=== PATIENT | male | born 1940 | race Caucasian/White ===

== ENCOUNTER 2018-06-12 16:56 | Emergency (ER) | payer MEDICARE, MEDICAID ==
[~2018-06-12] VITALS: Ht 154.9 cm; Wt 63.5 kg
[~2018-06-12 16:56] MED LIST: ALPR0.25 PO; AMIO100T4 PO; ASPI-1159 PO; CAPT12.53 PO; CLOP75TA16 PO; COR12 PO; ERLO150T PO; FURO-151 PO; LEVO112T7 PO; METO-539 PO; PRAV40TA58 PO; PRED5DRO7 EACHEYE; SACU1TAB PO; SIMV40TA5 PO
[2018-06-12 19:56] LABS: BASOPHILS % 0.9 % (0.0-2.0); EOSINOPHILS % 4.6 % (0.0-5.0); HEMATOCRIT. 38.3 % (42.0-52.0); HEMOGLOBIN. 13.3 g/dL (14.0-18.0); LYMPHOCYTES % 20.8 % (20.0-50.0); MEAN CORPUSCULAR HEMOGLOBIN 32.2 pg (28.0-32.0); MEAN CORPUSCULAR VOLUME 92.5 fL (80.0-94.0); MEAN PLATELET VOLUME 8.9 fl (7.4-10.4); MONOCYTES % 14.1 % (2.0-8.0); NEUTROPHILS % 59.6 % (40.0-76.0); PLATELET 203 x1000/uL (130-400); RED BLOOD CELL COUNT 4.14 mill/uL (4.7-6.1); RED CELL DISTRIBUTION WIDTH 14.4 % (11.6-14.6)
[2018-06-12 20:04] LABS: PARTIAL THROMBOPLASTIN TIME 27.8 sec (23.4-31.0); PROTHROMBIN TIME 9.9 sec (9.1-11.1)
[2018-06-12 20:06] LABS: CHLORIDE 103 mEq/L (98-107)
[2018-06-12] MEDS ORDERED: MECLIZINE 25MG TABLET PO ONE (20:15)
[2018-06-12] MEDS ORDERED: LORAZEPAM 2MG/ML CPJ IV ONE (20:15)
[2018-06-12 22:02] LABS: CLARITY URINE CLEAR (CLEAR); COLOR URINE YELLOW (YELLOW); KETONES URINE NEGATIVE (NEGATIVE); LEUKOCYTE ESTERASE URINE NEGATIVE (NEGATIVE); NITRITE URINE NEGATIVE (NEGATIVE); OCCULT BLOOD URINE NEGATIVE (NEGATIVE); PROTEIN URINE NEGATIVE (NEGATIVE); SPECIFIC GRAVITY URINE 1.011 (1.005-1.030); UROBILINOGEN URINE 0.2 E.U./dL (0.2-1.0)
[2018-06-13 00:10] VITALS: BP 132/62
== END 2018-06-13 00:37 | disposition home or self-care (01) ==
LOC: ER 16:56 → EDBEDREQ 18:34 → ER 06-13 00:37 → CANBEDREQ 06-13 04:41
DX: H81.10 Benign paroxysmal vertigo, unspecified ear (principal); J18.9 Pneumonia, unspecified organism; I44.7 Left bundle-branch block, unspecified; Z98.890 Other specified postprocedural states; Z85.118 Personal history of other malignant neoplasm of bronchus and lung; Z92.21 Personal history of antineoplastic chemotherapy
CPT/HCPCS: 36415; 70450; 71045; 80053; 81003; 83690; 83735; 83880; 84484; 85025; 85610; 85730; 93005; 96374; 99285; J2060; J8597

== ENCOUNTER 2018-09-09 14:53 | Inpatient (IN) | payer MEDICARE, MEDICAID ==
[~2018-09-09] VITALS: Ht 154.9 cm; Wt 61.5 kg
[2018-09-09 18:00] LABS: HEMATOCRIT. 35.3 % (42.0-52.0); HEMOGLOBIN. 11.7 g/dL (14.0-18.0); MEAN CORPUSCULAR VOLUME 90.2 fL (80.0-94.0); MEAN PLATELET VOLUME 8.4 fl (7.4-10.4); PLATELET 409 x1000/uL (130-400); RED BLOOD CELL COUNT 3.91 mill/uL (4.7-6.1); RED CELL DISTRIBUTION WIDTH 15.3 % (11.6-14.6)
[2018-09-09 18:02] LABS: CHLORIDE 103 mEq/L (98-107)
[2018-09-09] MEDS ORDERED: CEFTRIAXONE 1 G PREMIX 50 ML IV ONE (19:00)
[2018-09-09] MEDS ORDERED: AZITHROMYCIN 500 MG in DEXT 5% WATER 250 ML IV SCH (19:00)
[2018-09-09 19:59] LABS: PLATELET ESTIMATE SLIGHTLY INCREASED
[2018-09-10] VITALS (12 sets, daily range): BP systolic 63–125; BP diastolic 24–61
[2018-09-10] MEDS ORDERED: ACETAMINOPHEN 325MG TABLET PO PRN (05:30)
[2018-09-10 08:36] LABS: BG BASE EXCESS 2.8 mmol/L (-2.0-2.0); BG CARBOXYHEMOGLOBIN 0.3 % (0.5-1.5); BG DEOXYHEMOGLOBIN 2.4 % (0.0-5.0); BG FRACTION INSPIRED OXYGEN 32; BG HCO3 ACT 27.8 mmol/L (22.0-26.0); BG METHEMOGLOBIN 0.3 % (0.0-1.5); BG OXYGEN SATURATION 97.6 % (92.0-98.5); BG PCO2 44.3 mmHg (35.0-45.0); BG PH 7.415 (7.350-7.450); BG PO2 103.5 mmHg (75.0-100.0); BG SAMPLE SITE RIGHT BRACHIAL; BG TOTAL HEMOGLOBIN 11.2 g/dL (12.0-18.0); BG VENT MODE NASAL CANNULA
[2018-09-10 08:50] LABS: CLARITY URINE CLEAR (CLEAR); COLOR URINE YELLOW (YELLOW); KETONES URINE NEGATIVE (NEGATIVE); LEUKOCYTE ESTERASE URINE NEGATIVE (NEGATIVE); NITRITE URINE NEGATIVE (NEGATIVE); OCCULT BLOOD URINE NEGATIVE (NEGATIVE); PROTEIN URINE NEGATIVE (NEGATIVE); SPECIFIC GRAVITY URINE 1.011 (1.005-1.030)
[2018-09-10] MEDS: IPRATROPIUM/ALBUTEROL 0.5-3(2.5)MG/3ML NEB HHN SCH ×4 (08:53→21:20)
[2018-09-10] MEDS ORDERED: ENOXAPARIN 40MG/0.4ML SYR SUBCUT SCH (09:00)
[2018-09-10] MEDS ORDERED: POTASSIUM CHLORIDE 10MEQ TABLET SR PO SCH (09:00)
[2018-09-10] MEDS: ENOXAPARIN 30MG/0.3ML SYR SUBCUT SCH (09:09)
[2018-09-10] MEDS: POTASSIUM CHLORIDE 10MEQ TABLET SR PO SCH (09:09)
[2018-09-10] MEDS: FUROSEMIDE 40MG/4ML VIAL IVP SCH (09:09)
[2018-09-10 09:33] LABS: BASOPHILS % 1.1 % (0.0-2.0); EOSINOPHILS % 9.1 % (0.0-5.0); HEMOGLOBIN. 11.2 g/dL (14.0-18.0); LYMPHOCYTES % 19.3 % (20.0-50.0); MEAN CORPUSCULAR HEMOGLOBIN 29.6 pg (28.0-32.0); MEAN CORPUSCULAR VOLUME 89.4 fL (80.0-94.0); MEAN PLATELET VOLUME 8.2 fl (7.4-10.4); MONOCYTES % 13.4 % (2.0-8.0); NEUTROPHILS % 57.1 % (40.0-76.0); PLATELET 383 x1000/uL (130-400); RED CELL DISTRIBUTION WIDTH 14.9 % (11.6-14.6)
[2018-09-10 09:43] LABS: CHLORIDE 104 mEq/L (98-107)
[2018-09-10] MEDS ORDERED: DEXTROSE 50% WATER 50ML SYRINGE IV PRN ×2 (10:45)
[2018-09-10] MEDS ORDERED: ASPIRIN 81MG EC TABLET PO NR (10:45)
[2018-09-10] MEDS ORDERED: CLOPIDOGREL 75MG TABLET PO NR (10:45)
[2018-09-10] MEDS ORDERED: CEFTRIAXONE 1,000 MG in DEXTROSE 5% WATER 50 ML IV SCH (10:45)
[2018-09-10] MEDS: INSULIN LISPRO 100 UNITS/ML SUBCUT SCH ×3 (12:16→21:00)
[2018-09-10] MEDS: BLOOD SUGAR DIAGNOSTIC STRIP TEST SCH ×3 (12:16→21:24)
[2018-09-10] MEDS: CEFTRIAXONE 1 G PREMIX 50 ML IV SCH (12:32)
[2018-09-10] MEDS: CAPTOPRIL 12.5MG TABLET PO SCH ×2 (12:32→21:00)
[2018-09-10] MEDS: CARVEDILOL 12.5MG TABLET PO SCH ×2 (12:32→21:00)
[2018-09-10] MEDS ORDERED: SODIUM CHLORIDE 0.9% 1000ML BAG (SEPSIS BOLUS) IV ONE (17:30)
[2018-09-10] MEDS ORDERED: SODIUM CHLORIDE 0.9% 200 ML IV NR (17:30)
[2018-09-11] VITALS (12 sets, daily range): BP systolic 95–148; BP diastolic 37–91
[2018-09-11] MEDS: IPRATROPIUM/ALBUTEROL 0.5-3(2.5)MG/3ML NEB HHN SCH ×6 (01:35→20:05)
[2018-09-11] MEDS: LEVOTHYROXINE SODIUM 112MCG TABLET PO SCH (06:38)
[2018-09-11] MEDS: BLOOD SUGAR DIAGNOSTIC STRIP TEST SCH ×4 (07:46→21:00)
[2018-09-11 08:00] LABS: HEMATOCRIT. 33.3 % (42.0-52.0); MEAN CORPUSCULAR HEMOGLOBIN 29.7 pg (28.0-32.0); MEAN CORPUSCULAR VOLUME 89.9 fL (80.0-94.0); MEAN PLATELET VOLUME 8.2 fl (7.4-10.4); PLATELET 332 x1000/uL (130-400); RED CELL DISTRIBUTION WIDTH 15.2 % (11.6-14.6)
[2018-09-11] MEDS: INSULIN LISPRO 100 UNITS/ML SUBCUT SCH ×4 (08:00→22:48)
[2018-09-11 08:01] LABS: CHLORIDE 103 mEq/L (98-107)
[2018-09-11] MEDS: FUROSEMIDE 40MG/4ML VIAL IVP SCH (08:31)
[2018-09-11] MEDS: ENOXAPARIN 30MG/0.3ML SYR SUBCUT SCH (08:32)
[2018-09-11] MEDS: ASPIRIN 81MG EC TABLET PO SCH (08:32)
[2018-09-11] MEDS: POTASSIUM CHLORIDE 10MEQ TABLET SR PO SCH (08:32)
[2018-09-11] MEDS: CLOPIDOGREL 75MG TABLET PO SCH (08:32)
[2018-09-11] MEDS: BUDESONIDE 0.5MG/2ML NEB HHN SCH ×2 (08:32→20:05)
[2018-09-11] MEDS: CAPTOPRIL 12.5MG TABLET PO SCH ×2 (08:34→21:00)
[2018-09-11] MEDS: CARVEDILOL 12.5MG TABLET PO SCH ×2 (08:35→21:00)
[2018-09-11] MEDS ORDERED: METHYLPREDNISOLONE SOD SUCC 40 MG/ML VIAL IV NR (09:15)
[2018-09-11] MEDS: DOCUSATE SODIUM 100MG CAPSULE PO SCH ×2 (09:47→16:52)
[2018-09-11] MEDS ORDERED: METHYLPREDNISOLONE SOD SUCC 40 MG/ML VIAL IV SCH (10:00)
[2018-09-11 12:46] LABS: PLATELET ESTIMATE NORMAL
[2018-09-11] MEDS: CEFTRIAXONE 1 G PREMIX 50 ML IV SCH (13:01)
[2018-09-11] MEDS: MONTELUKAST SODIUM 10MG TABLET PO SCH (17:45)
[2018-09-12] VITALS (12 sets, daily range): BP systolic 95–146; BP diastolic 41–94
[2018-09-12] MEDS: IPRATROPIUM/ALBUTEROL 0.5-3(2.5)MG/3ML NEB HHN SCH ×6 (00:59→21:25)
[2018-09-12] MEDS: LEVOTHYROXINE SODIUM 112MCG TABLET PO SCH (06:33)
[2018-09-12 07:56] LABS: BASOPHILS % 0.2 % (0.0-2.0); HEMATOCRIT. 32.4 % (42.0-52.0); HEMOGLOBIN. 10.8 g/dL (14.0-18.0); LYMPHOCYTES % 9.8 % (20.0-50.0); MEAN CORPUSCULAR HEMOGLOBIN 29.5 pg (28.0-32.0); MEAN CORPUSCULAR VOLUME 88.6 fL (80.0-94.0); MEAN PLATELET VOLUME 8.4 fl (7.4-10.4); MONOCYTES % 6.8 % (2.0-8.0); NEUTROPHILS % 83.2 % (40.0-76.0); PLATELET 374 x1000/uL (130-400); RED BLOOD CELL COUNT 3.65 mill/uL (4.7-6.1)
[2018-09-12] MEDS: INSULIN LISPRO 100 UNITS/ML SUBCUT SCH ×4 (08:00→21:00)
[2018-09-12] MEDS: BLOOD SUGAR DIAGNOSTIC STRIP TEST SCH ×4 (08:18→21:00)
[2018-09-12] MEDS: DOCUSATE SODIUM 100MG CAPSULE PO SCH ×2 (08:43→17:00)
[2018-09-12] MEDS: FUROSEMIDE 40MG/4ML VIAL IVP SCH (08:43)
[2018-09-12] MEDS: ENOXAPARIN 30MG/0.3ML SYR SUBCUT SCH (08:43)
[2018-09-12] MEDS: ASPIRIN 81MG EC TABLET PO SCH (08:43)
[2018-09-12] MEDS: CLOPIDOGREL 75MG TABLET PO SCH (08:46)
[2018-09-12] MEDS: CARVEDILOL 12.5MG TABLET PO SCH ×2 (10:39→22:41)
[2018-09-12] MEDS: BUDESONIDE 0.5MG/2ML NEB HHN SCH (12:42)
[2018-09-12] MEDS: CEFTRIAXONE 1 G PREMIX 50 ML IV SCH (13:53)
[2018-09-12] MEDS: MONTELUKAST SODIUM 10MG TABLET PO SCH (17:17)
[2018-09-12] MEDS ORDERED: ATORVASTATIN CALCIUM 40MG TABLET PO SCH (21:00)
[2018-09-13] VITALS (10 sets, daily range): BP systolic 99–134; BP diastolic 46–78
[2018-09-13] MEDS: IPRATROPIUM/ALBUTEROL 0.5-3(2.5)MG/3ML NEB HHN SCH ×5 (00:40→15:29)
[2018-09-13] MEDS: BUDESONIDE 0.5MG/2ML NEB HHN SCH (07:41)
[2018-09-13] MEDS: BLOOD SUGAR DIAGNOSTIC STRIP TEST SCH ×3 (07:54→17:05)
[2018-09-13] MEDS: INSULIN LISPRO 100 UNITS/ML SUBCUT SCH ×3 (08:00→17:16)
[2018-09-13 08:19] LABS: BASOPHILS % 0.6 % (0.0-2.0); EOSINOPHILS % 2.5 % (0.0-5.0); HEMATOCRIT. 32.8 % (42.0-52.0); HEMOGLOBIN. 10.8 g/dL (14.0-18.0); MEAN CORPUSCULAR HEMOGLOBIN 29.5 pg (28.0-32.0); MEAN CORPUSCULAR VOLUME 89.6 fL (80.0-94.0); MEAN PLATELET VOLUME 8.3 fl (7.4-10.4); MONOCYTES % 10.6 % (2.0-8.0); NEUTROPHILS % 68.3 % (40.0-76.0); PLATELET 330 x1000/uL (130-400); RED BLOOD CELL COUNT 3.66 mill/uL (4.7-6.1); RED CELL DISTRIBUTION WIDTH 15.1 % (11.6-14.6)
[2018-09-13] MEDS: ENOXAPARIN 30MG/0.3ML SYR SUBCUT SCH (08:26)
[2018-09-13] MEDS: CLOPIDOGREL 75MG TABLET PO SCH (08:26)
[2018-09-13] MEDS: LEVOTHYROXINE SODIUM 112MCG TABLET PO SCH (08:26)
[2018-09-13] MEDS: ASPIRIN 81MG EC TABLET PO SCH (08:26)
[2018-09-13] MEDS: DOCUSATE SODIUM 100MG CAPSULE PO SCH ×2 (08:26→17:16)
[2018-09-13] MEDS: CARVEDILOL 12.5MG TABLET PO SCH (08:26)
[2018-09-13] MEDS: CEFTRIAXONE 1 G PREMIX 50 ML IV SCH (13:02)
[2018-09-13] MEDS: MONTELUKAST SODIUM 10MG TABLET PO SCH (17:16)
== END 2018-09-13 17:46 | DRG 280 ==
LOC: ER 15:51 → 5EST 21:04 → EDBEDREQTM 21:16 → EDBEDREQ 21:16 → EDBEDREQSVC 21:16 → EDBEDREQTM 22:30 → ENRESERV 09-10 02:05
PROVIDERS: ADMIT Internal Medicine Geriatric Medicine; ATTEND Internal Medicine Geriatric Medicine
DX: I21.4 Non-ST elevation (NSTEMI) myocardial infarction (principal); J96.20 Acute and chronic respiratory failure, unspecified whether with hypoxia or hypercapnia; I50.43 Acute on chronic combined systolic (congestive) and diastolic (congestive) heart failure; J18.9 Pneumonia, unspecified organism; I13.0 Hypertensive heart and chronic kidney disease with heart failure and stage 1 through stage 4 chronic kidney disease, or unspecified chronic kidney disease; J44.0 Chronic obstructive pulmonary disease with (acute) lower respiratory infection; C34.90 Malignant neoplasm of unspecified part of unspecified bronchus or lung; I42.0 Dilated cardiomyopathy; R45.851 Suicidal ideations; N17.9 Acute kidney failure, unspecified; E46 Unspecified protein-calorie malnutrition; J44.1 Chronic obstructive pulmonary disease with (acute) exacerbation; M19.90 Unspecified osteoarthritis, unspecified site; I49.9 Cardiac arrhythmia, unspecified; E11.51 Type 2 diabetes mellitus with diabetic peripheral angiopathy without gangrene; E11.22 Type 2 diabetes mellitus with diabetic chronic kidney disease; N18.9 Chronic kidney disease, unspecified; E78.00 Pure hypercholesterolemia, unspecified; E78.5 Hyperlipidemia, unspecified; F32.9 Major depressive disorder, single episode, unspecified; I25.10 Atherosclerotic heart disease of native coronary artery without angina pectoris; Z95.1 Presence of aortocoronary bypass graft; Z98.61 Coronary angioplasty status; Z95.810 Presence of automatic (implantable) cardiac defibrillator; Z99.81 Dependence on supplemental oxygen; Z83.3 Family history of diabetes mellitus; Z82.49 Family history of ischemic heart disease and other diseases of the circulatory system; Z92.21 Personal history of antineoplastic chemotherapy; Z79.82 Long term (current) use of aspirin; Z79.02 Long term (current) use of antithrombotics/antiplatelets; Z79.899 Other long term (current) drug therapy; I25.2 Old myocardial infarction; Z68.25 Body mass index [BMI] 25.0-25.9, adult
CPT/HCPCS: 36415; 36600; 71045; 71250; 76770; 80048; 82375; 82550; 82805; 82962; 83036; 83735; 83880; 84484; 92610; 93005; 93306; 94640; 96365; 96366; 96375; 97116; 97162; 97530; 99291; J0456; J0696; J1650; J1815; J1940; J2920; J7050; J7060; J7620; J7626

== ENCOUNTER 2018-09-13 17:50 | Inpatient (IN) | payer MEDICARE, MEDICAID ==
[~2018-09-13] VITALS: Ht 154.9 cm; Wt 61.5 kg
[2018-09-13] MEDS: IPRATROPIUM/ALBUTEROL 0.5-3(2.5)MG/3ML NEB HHN SCH (00:55)
[2018-09-13 20:00] VITALS: BP_SYST 116; BP_SYST 117; BP_DIAS 45; BP_DIAS 60; BP_DIAS 66
[2018-09-13] MEDS ORDERED: ACETAMINOPHEN 325MG TABLET PO PRN (20:30)
[2018-09-13] MEDS ORDERED: DEXTROSE 50% WATER 50ML SYRINGE IV PRN (20:30)
[2018-09-13] MEDS: INSULIN LISPRO 100 UNITS/ML SUBCUT SCH (21:00)
[2018-09-13] MEDS: BLOOD SUGAR DIAGNOSTIC STRIP TEST SCH (21:00)
[2018-09-13] MEDS: CARVEDILOL 12.5MG TABLET PO SCH (21:00)
[2018-09-13] MEDS: ATORVASTATIN CALCIUM 40MG TABLET PO SCH (22:51)
[2018-09-14] MEDS: IPRATROPIUM/ALBUTEROL 0.5-3(2.5)MG/3ML NEB HHN SCH ×7 (00:20→23:15)
[2018-09-14] MEDS: INSULIN LISPRO 100 UNITS/ML SUBCUT SCH ×4 (05:57→21:00)
[2018-09-14] MEDS: BLOOD SUGAR DIAGNOSTIC STRIP TEST SCH ×4 (05:57→21:34)
[2018-09-14] MEDS: LEVOTHYROXINE SODIUM 112MCG TABLET PO SCH (05:57)
[2018-09-14 08:00] VITALS: BP 123/60
[2018-09-14] MEDS: BUDESONIDE 0.5MG/2ML NEB HHN SCH ×2 (08:00→20:14)
[2018-09-14] MEDS ORDERED: PHENOL/SODIUM PHENOLATE 1.4% SRPAY 177ML MM PRN (09:00)
[2018-09-14] MEDS: ASPIRIN 81MG TABLET PO SCH (10:43)
[2018-09-14] MEDS: CLOPIDOGREL 75MG TABLET PO SCH (10:43)
[2018-09-14] MEDS: CARVEDILOL 12.5MG TABLET PO SCH ×2 (10:43→21:00)
[2018-09-14] MEDS: DOCUSATE SODIUM 100MG CAPSULE PO SCH ×2 (10:44→17:50)
[2018-09-14] MEDS: MONTELUKAST SODIUM 10MG TABLET PO SCH (17:50)
[2018-09-14 20:00] VITALS: BP_SYST 118; BP_SYST 119; BP_DIAS 48; BP_DIAS 69
[2018-09-14] MEDS ORDERED: ZOLPIDEM TARTRATE 5MG TABLET PO PRN (21:00)
[2018-09-14] MEDS: ATORVASTATIN CALCIUM 40MG TABLET PO SCH (21:34)
[2018-09-14] MEDS: TRAZODONE HCL 50MG TABLET PO SCH (21:34)
[2018-09-15] MEDS: INSULIN LISPRO 100 UNITS/ML SUBCUT SCH ×4 (06:38→20:33)
[2018-09-15] MEDS: BLOOD SUGAR DIAGNOSTIC STRIP TEST SCH ×4 (06:38→20:33)
[2018-09-15] MEDS: LEVOTHYROXINE SODIUM 112MCG TABLET PO SCH (06:38)
[2018-09-15 07:08] LABS: EOSINOPHILS % 8.6 % (0.0-5.0); HEMATOCRIT. 32.3 % (42.0-52.0); HEMOGLOBIN. 10.8 g/dL (14.0-18.0); LYMPHOCYTES % 20.5 % (20.0-50.0); MEAN CORPUSCULAR HEMOGLOBIN 29.8 pg (28.0-32.0); MEAN CORPUSCULAR VOLUME 89.2 fL (80.0-94.0); MEAN PLATELET VOLUME 8.3 fl (7.4-10.4); NEUTROPHILS % 55.9 % (40.0-76.0); PLATELET 293 x1000/uL (130-400); RED BLOOD CELL COUNT 3.63 mill/uL (4.7-6.1)
[2018-09-15 08:00] VITALS: BP 128/58
[2018-09-15 08:10] VITALS: BP 128/58
[2018-09-15 08:31] LABS: CHLORIDE 105 mEq/L (98-107)
[2018-09-15] MEDS: CLOPIDOGREL 75MG TABLET PO SCH (08:46)
[2018-09-15] MEDS: DOCUSATE SODIUM 100MG CAPSULE PO SCH ×2 (08:46→16:06)
[2018-09-15] MEDS: CARVEDILOL 12.5MG TABLET PO SCH ×2 (08:47→20:33)
[2018-09-15] MEDS: ASPIRIN 81MG TABLET PO SCH (08:47)
[2018-09-15] MEDS: IPRATROPIUM/ALBUTEROL 0.5-3(2.5)MG/3ML NEB HHN SCH ×4 (09:35→20:55)
[2018-09-15] MEDS: BUDESONIDE 0.5MG/2ML NEB HHN SCH ×2 (09:35→20:55)
[2018-09-15] MEDS ORDERED: LACTULOSE 20G/30ML UDC PO SCH (16:00)
[2018-09-15] MEDS: MONTELUKAST SODIUM 10MG TABLET PO SCH (16:06)
[2018-09-15] MEDS: LACTULOSE 20G/30ML UDC PO PRN (16:06)
[2018-09-15 20:00] VITALS: BP 114/52
[2018-09-15] MEDS: ATORVASTATIN CALCIUM 40MG TABLET PO SCH (20:33)
[2018-09-15] MEDS: TRAZODONE HCL 50MG TABLET PO SCH (20:33)
[2018-09-15] MEDS ORDERED: NA PHOS,M-B/NA PHOS,DI-BA ENEMA 118ML PR PRN (21:45)
[2018-09-16] MEDS: IPRATROPIUM/ALBUTEROL 0.5-3(2.5)MG/3ML NEB HHN SCH ×6 (01:13→21:05)
[2018-09-16] MEDS: LEVOTHYROXINE SODIUM 112MCG TABLET PO SCH (06:07)
[2018-09-16] MEDS: BLOOD SUGAR DIAGNOSTIC STRIP TEST SCH ×4 (06:07→21:31)
[2018-09-16] MEDS: INSULIN LISPRO 100 UNITS/ML SUBCUT SCH ×4 (06:07→21:00)
[2018-09-16 08:00] VITALS: BP 115/55
[2018-09-16] MEDS: CLOPIDOGREL 75MG TABLET PO SCH (08:42)
[2018-09-16] MEDS: DOCUSATE SODIUM 100MG CAPSULE PO SCH ×2 (08:43→16:14)
[2018-09-16] MEDS: CARVEDILOL 12.5MG TABLET PO SCH ×2 (08:43→21:23)
[2018-09-16] MEDS: ASPIRIN 81MG TABLET PO SCH (08:43)
[2018-09-16 08:47] VITALS: BP 115/55
[2018-09-16] MEDS: BUDESONIDE 0.5MG/2ML NEB HHN SCH ×2 (15:37→21:05)
[2018-09-16] MEDS: MONTELUKAST SODIUM 10MG TABLET PO SCH (16:14)
[2018-09-16 20:00] VITALS: BP 114/50
[2018-09-16] MEDS: ATORVASTATIN CALCIUM 40MG TABLET PO SCH (21:23)
[2018-09-16] MEDS: TRAZODONE HCL 50MG TABLET PO SCH (21:23)
[2018-09-17] MEDS: IPRATROPIUM/ALBUTEROL 0.5-3(2.5)MG/3ML NEB HHN SCH ×6 (00:57→21:05)
[2018-09-17] MEDS: LEVOTHYROXINE SODIUM 112MCG TABLET PO SCH (05:36)
[2018-09-17] MEDS: BLOOD SUGAR DIAGNOSTIC STRIP TEST SCH ×4 (05:36→20:12)
[2018-09-17 07:26] LABS: BASOPHILS % 1.2 % (0.0-2.0); EOSINOPHILS % 11.9 % (0.0-5.0); HEMATOCRIT. 34.5 % (42.0-52.0); HEMOGLOBIN. 11.4 g/dL (14.0-18.0); LYMPHOCYTES % 20.9 % (20.0-50.0); MEAN CORPUSCULAR VOLUME 90.7 fL (80.0-94.0); MEAN PLATELET VOLUME 8.8 fl (7.4-10.4); MONOCYTES % 12.1 % (2.0-8.0); NEUTROPHILS % 53.9 % (40.0-76.0); PLATELET 268 x1000/uL (130-400); RED CELL DISTRIBUTION WIDTH 15.7 % (11.6-14.6)
[2018-09-17 08:24] VITALS: BP 138/70
[2018-09-17] MEDS: BUDESONIDE 0.5MG/2ML NEB HHN SCH (09:00)
[2018-09-17] MEDS: INSULIN LISPRO 100 UNITS/ML SUBCUT SCH ×4 (09:00→20:12)
[2018-09-17] MEDS: CLOPIDOGREL 75MG TABLET PO SCH (10:57)
[2018-09-17] MEDS: DOCUSATE SODIUM 100MG CAPSULE PO SCH ×2 (10:57→16:32)
[2018-09-17] MEDS: ASPIRIN 81MG TABLET PO SCH (10:58)
[2018-09-17] MEDS: CARVEDILOL 12.5MG TABLET PO SCH ×2 (10:58→20:12)
[2018-09-17] MEDS: MONTELUKAST SODIUM 10MG TABLET PO SCH (16:32)
[2018-09-17 20:00] VITALS: BP 102/44
[2018-09-17] MEDS: ATORVASTATIN CALCIUM 40MG TABLET PO SCH (20:12)
[2018-09-17] MEDS: TRAZODONE HCL 50MG TABLET PO SCH (20:12)
[2018-09-18] MEDS: IPRATROPIUM/ALBUTEROL 0.5-3(2.5)MG/3ML NEB HHN SCH ×6 (00:46→21:44)
[2018-09-18] MEDS: BLOOD SUGAR DIAGNOSTIC STRIP TEST SCH ×4 (05:40→21:06)
[2018-09-18] MEDS: INSULIN LISPRO 100 UNITS/ML SUBCUT SCH ×4 (05:40→21:00)
[2018-09-18] MEDS: LACTULOSE 20G/30ML UDC PO PRN (05:40)
[2018-09-18] MEDS: LEVOTHYROXINE SODIUM 112MCG TABLET PO SCH (06:07)
[2018-09-18 08:35] VITALS: BP 106/49
[2018-09-18] MEDS: CLOPIDOGREL 75MG TABLET PO SCH (09:10)
[2018-09-18] MEDS: DOCUSATE SODIUM 100MG CAPSULE PO SCH ×2 (09:10→16:58)
[2018-09-18] MEDS: CARVEDILOL 12.5MG TABLET PO SCH ×2 (09:11→21:06)
[2018-09-18] MEDS: ASPIRIN 81MG TABLET PO SCH (09:13)
[2018-09-18] MEDS: MONTELUKAST SODIUM 10MG TABLET PO SCH (16:58)
[2018-09-18 20:00] VITALS: BP 111/54
[2018-09-18] MEDS: TRAZODONE HCL 50MG TABLET PO SCH (21:06)
[2018-09-18] MEDS: ATORVASTATIN CALCIUM 40MG TABLET PO SCH (21:06)
[2018-09-19] MEDS: IPRATROPIUM/ALBUTEROL 0.5-3(2.5)MG/3ML NEB HHN SCH ×6 (00:38→21:43)
[2018-09-19] MEDS: BLOOD SUGAR DIAGNOSTIC STRIP TEST SCH ×4 (06:05→21:41)
[2018-09-19] MEDS: LEVOTHYROXINE SODIUM 112MCG TABLET PO SCH (06:06)
[2018-09-19 08:00] VITALS: BP 149/72
[2018-09-19] MEDS: INSULIN LISPRO 100 UNITS/ML SUBCUT SCH ×4 (09:00→21:00)
[2018-09-19] MEDS: DOCUSATE SODIUM 100MG CAPSULE PO SCH ×2 (10:05→17:33)
[2018-09-19] MEDS: ASPIRIN 81MG TABLET PO SCH (10:05)
[2018-09-19] MEDS: CARVEDILOL 12.5MG TABLET PO SCH ×2 (10:06→21:00)
[2018-09-19] MEDS: CLOPIDOGREL 75MG TABLET PO SCH (10:06)
[2018-09-19] MEDS: MONTELUKAST SODIUM 10MG TABLET PO SCH (17:33)
[2018-09-19 20:00] VITALS: BP 132/58
[2018-09-19] MEDS: ATORVASTATIN CALCIUM 40MG TABLET PO SCH (21:40)
[2018-09-19] MEDS: TRAZODONE HCL 50MG TABLET PO SCH (21:40)
[2018-09-20] MEDS: IPRATROPIUM/ALBUTEROL 0.5-3(2.5)MG/3ML NEB HHN SCH ×6 (00:50→20:51)
[2018-09-20] MEDS: LEVOTHYROXINE SODIUM 112MCG TABLET PO SCH (06:06)
[2018-09-20] MEDS: BLOOD SUGAR DIAGNOSTIC STRIP TEST SCH ×4 (06:06→21:00)
[2018-09-20] MEDS: INSULIN LISPRO 100 UNITS/ML SUBCUT SCH ×4 (06:07→21:00)
[2018-09-20 07:59] LABS: BASOPHILS % 1.1 % (0.0-2.0); EOSINOPHILS % 9.6 % (0.0-5.0); HEMATOCRIT. 33.5 % (42.0-52.0); HEMOGLOBIN. 11.2 g/dL (14.0-18.0); LYMPHOCYTES % 18.2 % (20.0-50.0); MEAN CORPUSCULAR HEMOGLOBIN 29.9 pg (28.0-32.0); MEAN CORPUSCULAR VOLUME 89.6 fL (80.0-94.0); MEAN PLATELET VOLUME 9.2 fl (7.4-10.4); NEUTROPHILS % 58.1 % (40.0-76.0); PLATELET 201 x1000/uL (130-400); RED BLOOD CELL COUNT 3.74 mill/uL (4.7-6.1); RED CELL DISTRIBUTION WIDTH 16.1 % (11.6-14.6)
[2018-09-20 08:11] VITALS: BP 116/54
[2018-09-20] MEDS: DOCUSATE SODIUM 100MG CAPSULE PO SCH ×2 (09:20→18:01)
[2018-09-20] MEDS: CLOPIDOGREL 75MG TABLET PO SCH (09:20)
[2018-09-20] MEDS: CARVEDILOL 12.5MG TABLET PO SCH ×2 (09:21→21:00)
[2018-09-20] MEDS: ASPIRIN 81MG TABLET PO SCH (09:25)
[2018-09-20] MEDS: MONTELUKAST SODIUM 10MG TABLET PO SCH (18:01)
[2018-09-20 20:00] VITALS: BP 102/46
[2018-09-20] MEDS: ATORVASTATIN CALCIUM 40MG TABLET PO SCH (22:02)
[2018-09-20] MEDS: TRAZODONE HCL 50MG TABLET PO SCH (22:03)
[2018-09-21] MEDS: IPRATROPIUM/ALBUTEROL 0.5-3(2.5)MG/3ML NEB HHN SCH ×6 (01:04→21:02)
[2018-09-21] MEDS: BLOOD SUGAR DIAGNOSTIC STRIP TEST SCH ×4 (06:11→20:21)
[2018-09-21] MEDS: LEVOTHYROXINE SODIUM 112MCG TABLET PO SCH (06:12)
[2018-09-21] MEDS: INSULIN LISPRO 100 UNITS/ML SUBCUT SCH ×4 (06:12→20:21)
[2018-09-21 08:16] VITALS: BP 115/48
[2018-09-21] MEDS: ASPIRIN 81MG TABLET PO SCH (08:16)
[2018-09-21] MEDS: DOCUSATE SODIUM 100MG CAPSULE PO SCH ×2 (08:16→17:07)
[2018-09-21] MEDS: CLOPIDOGREL 75MG TABLET PO SCH (08:16)
[2018-09-21] MEDS: CARVEDILOL 12.5MG TABLET PO SCH ×2 (08:17→20:21)
[2018-09-21] MEDS: MONTELUKAST SODIUM 10MG TABLET PO SCH (17:07)
[2018-09-21 20:37] VITALS: BP 109/43
[2018-09-21] MEDS: TRAZODONE HCL 50MG TABLET PO SCH (20:44)
[2018-09-21] MEDS: ATORVASTATIN CALCIUM 40MG TABLET PO SCH (20:44)
[2018-09-22] MEDS: IPRATROPIUM/ALBUTEROL 0.5-3(2.5)MG/3ML NEB HHN SCH ×4 (00:23→11:41)
[2018-09-22] MEDS: BLOOD SUGAR DIAGNOSTIC STRIP TEST SCH ×2 (06:18→11:18)
[2018-09-22] MEDS: INSULIN LISPRO 100 UNITS/ML SUBCUT SCH ×2 (06:18→12:22)
[2018-09-22] MEDS: LEVOTHYROXINE SODIUM 112MCG TABLET PO SCH (06:18)
[2018-09-22 07:58] VITALS: BP 106/45
[2018-09-22] MEDS: CARVEDILOL 12.5MG TABLET PO SCH (09:00)
[2018-09-22] MEDS: ASPIRIN 81MG TABLET PO SCH (09:07)
[2018-09-22] MEDS: CLOPIDOGREL 75MG TABLET PO SCH (09:08)
[2018-09-22] MEDS: DOCUSATE SODIUM 100MG CAPSULE PO SCH (09:08)
[2018-09-22 10:26] VITALS: BP 106/45
== END 2018-09-22 15:35 | disposition home health service (06) | DRG 280 ==
PROVIDERS: ADMIT Psychiatry & Neurology Neurology; ATTEND Internal Medicine Geriatric Medicine
DX: I13.0 Hypertensive heart and chronic kidney disease with heart failure and stage 1 through stage 4 chronic kidney disease, or unspecified chronic kidney disease (principal); I50.23 Acute on chronic systolic (congestive) heart failure; I21.4 Non-ST elevation (NSTEMI) myocardial infarction; J96.20 Acute and chronic respiratory failure, unspecified whether with hypoxia or hypercapnia; J18.9 Pneumonia, unspecified organism; J44.1 Chronic obstructive pulmonary disease with (acute) exacerbation; J44.0 Chronic obstructive pulmonary disease with (acute) lower respiratory infection; R45.851 Suicidal ideations; E46 Unspecified protein-calorie malnutrition; N17.9 Acute kidney failure, unspecified; R53.81 Other malaise; I49.9 Cardiac arrhythmia, unspecified; F32.9 Major depressive disorder, single episode, unspecified; E11.22 Type 2 diabetes mellitus with diabetic chronic kidney disease; N18.9 Chronic kidney disease, unspecified; R53.1 Weakness; F06.31 Mood disorder due to known physiological condition with depressive features; F41.9 Anxiety disorder, unspecified; M19.90 Unspecified osteoarthritis, unspecified site; E11.51 Type 2 diabetes mellitus with diabetic peripheral angiopathy without gangrene; H54.61 Unqualified visual loss, right eye, normal vision left eye; I25.10 Atherosclerotic heart disease of native coronary artery without angina pectoris; I25.5 Ischemic cardiomyopathy; Z85.118 Personal history of other malignant neoplasm of bronchus and lung; Z95.1 Presence of aortocoronary bypass graft; Z68.25 Body mass index [BMI] 25.0-25.9, adult; Z95.810 Presence of automatic (implantable) cardiac defibrillator; Z95.5 Presence of coronary angioplasty implant and graft; Z79.02 Long term (current) use of antithrombotics/antiplatelets; Z79.82 Long term (current) use of aspirin; Z79.890 Hormone replacement therapy; Z79.899 Other long term (current) drug therapy; Z87.440 Personal history of urinary (tract) infections
CPT/HCPCS: 36415; 80048; 82962; 92610; 93970; 94640; 97110; 97112; 97116; 97150; 97162; 97166; 97530; 97535; J7620; J7626

== ENCOUNTER 2018-09-27 08:13 | Inpatient (IN) | payer MEDICARE, MEDICAID ==
[~2018-09-27] VITALS: Ht 165.1 cm; Wt 63.1 kg
[~2018-09-27 08:13] MED LIST changes: -ALPR0.25 PO; -AMIO100T4 PO; -ASPI-1159 PO; -CAPT12.53 PO; -ERLO150T PO; -FURO-151 PO; -METO-539 PO; -PRAV40TA58 PO; -PRED5DRO7 EACHEYE; -SACU1TAB PO; -SIMV40TA5 PO
[2018-09-27 09:17] LABS: CHLORIDE 107 mEq/L (98-107)
[2018-09-27 09:18] LABS: PROTHROMBIN TIME 10.3 sec (9.1-11.1)
[2018-09-27 09:21] LABS: BASOPHILS % 0.8 % (0.0-2.0); EOSINOPHILS % 2.4 % (0.0-5.0); HEMATOCRIT. 34.9 % (42.0-52.0); HEMOGLOBIN. 11.5 g/dL (14.0-18.0); LYMPHOCYTES % 10.7 % (20.0-50.0); MEAN CORPUSCULAR HEMOGLOBIN 29.7 pg (28.0-32.0); MEAN CORPUSCULAR VOLUME 90.2 fL (80.0-94.0); MEAN PLATELET VOLUME 9.9 fl (7.4-10.4); MONOCYTES % 8.2 % (2.0-8.0); NEUTROPHILS % 77.9 % (40.0-76.0); PLATELET 202 x1000/uL (130-400); RED BLOOD CELL COUNT 3.86 mill/uL (4.7-6.1); RED CELL DISTRIBUTION WIDTH 16.6 % (11.6-14.6)
[2018-09-27] MEDS ORDERED: FUROSEMIDE 40MG/4ML VIAL IVP ONE (09:45)
[2018-09-27] MEDS ORDERED: ASPIRIN 81MG TABLET PO ONE (09:45)
[2018-09-27] MEDS ORDERED: IOHEXOL-350 100 ML BOTTLE ONE (12:40)
[2018-09-27 13:20] VITALS: BP 137/75
[2018-09-27 13:21] VITALS: BP 137/75
[2018-09-27] MEDS ORDERED: ACETAMINOPHEN 325MG TABLET PO PRN (14:30)
[2018-09-27 15:20] LABS: BG BASE EXCESS 1.9 mmol/L (-2.0-2.0); BG CARBOXYHEMOGLOBIN 0.6 % (0.5-1.5); BG DEOXYHEMOGLOBIN 1.4 % (0.0-5.0); BG HCO3 ACT 27.2 mmol/L (22.0-26.0); BG METHEMOGLOBIN 0.3 % (0.0-1.5); BG OXYGEN SATURATION 98.6 % (92.0-98.5); BG OXYHEMOGLOBIN 97.7 % (94.0-97.0); BG PCO2 45.6 mmHg (35.0-45.0); BG PH 7.394 (7.350-7.450); BG PO2 136.3 mmHg (75.0-100.0); BG SAMPLE SITE RIGHT RADIAL; BG TOTAL HEMOGLOBIN 12.4 g/dL (12.0-18.0); BG VENT MODE NASAL CANNULA
[2018-09-27 15:50] VITALS: BP 132/85
[2018-09-27] MEDS ORDERED: IPRATROPIUM/ALBUTEROL 0.5-3(2.5)MG/3ML NEB HHN SCH (16:00)
[2018-09-27] MEDS: NITROGLYCERIN OINT 1GM/INCH UDPKT TD SCH ×2 (16:50→21:53)
[2018-09-27] MEDS: CARVEDILOL 3.125 MG TABLET PO SCH ×2 (16:50→21:00)
[2018-09-27] MEDS ORDERED: ENOXAPARIN 80MG/0.8ML SYR SUBCUT NR (18:00)
[2018-09-27] MEDS ORDERED: ENOXAPARIN 60MG/0.6ML SYR SUBCUT NR (18:00)
[2018-09-27] MEDS: MONTELUKAST SODIUM 10MG TABLET PO SCH (18:02)
[2018-09-27 20:00] VITALS: BP 106/45
[2018-09-27] MEDS: ATORVASTATIN CALCIUM 40MG TABLET PO SCH (21:52)
[2018-09-27] MEDS: BUDESONIDE 0.5MG/2ML NEB HHN SCH (22:29)
[2018-09-27] MEDS: ALBUTEROL (0.083%) 2.5MG/3ML NEB HHN SCH (22:30)
[2018-09-28] VITALS (9 sets, daily range): BP systolic 102–152; BP diastolic 45–76
[2018-09-28] MEDS: ALBUTEROL (0.083%) 2.5MG/3ML NEB HHN SCH ×4 (02:56→20:04)
[2018-09-28] MEDS: NITROGLYCERIN OINT 1GM/INCH UDPKT TD SCH ×3 (05:02→21:31)
[2018-09-28 07:07] LABS: BASOPHILS % 1.1 % (0.0-2.0); EOSINOPHILS % 5.7 % (0.0-5.0); HEMATOCRIT. 32.4 % (42.0-52.0); HEMOGLOBIN. 10.7 g/dL (14.0-18.0); LYMPHOCYTES % 16.5 % (20.0-50.0); MEAN CORPUSCULAR HEMOGLOBIN 29.7 pg (28.0-32.0); MEAN CORPUSCULAR VOLUME 89.8 fL (80.0-94.0); MEAN PLATELET VOLUME 9.4 fl (7.4-10.4); MONOCYTES % 12.9 % (2.0-8.0); NEUTROPHILS % 63.8 % (40.0-76.0); PLATELET 182 x1000/uL (130-400); RED BLOOD CELL COUNT 3.61 mill/uL (4.7-6.1); RED CELL DISTRIBUTION WIDTH 16.6 % (11.6-14.6)
[2018-09-28] MEDS: PANTOPRAZOLE 40MG DR TABLET PO SCH (07:40)
[2018-09-28] MEDS: BUDESONIDE 0.5MG/2ML NEB HHN SCH ×2 (07:44→20:05)
[2018-09-28] MEDS ORDERED: MIDAZOLAM HCL 2 MG/2 ML VIAL ONE (08:46)
[2018-09-28] MEDS ORDERED: FENTANYL CITRATE/PF 50MCG/ML 2ML VIAL ONE (08:46)
[2018-09-28] MEDS ORDERED: LIDOCAINE HCL 1% 20ML VIAL (Pyxis) INJ ONE (08:51)
[2018-09-28] MEDS ORDERED: IODIXANOL 320MG/ML 100 ML BOTTLE IV ONE ×2 (08:52→09:59)
[2018-09-28 08:56] LABS: T4 FREE 1.48 ng/dL (0.76-1.46)
[2018-09-28] MEDS: ASPIRIN 81MG EC TABLET PO SCH (09:00)
[2018-09-28] MEDS ORDERED: FLUTICASONE/VILANTEROL 200-25 BLST.W.DEV ORI SCH (09:00)
[2018-09-28] MEDS: CARVEDILOL 3.125 MG TABLET PO SCH ×2 (09:00→21:31)
[2018-09-28] MEDS: FUROSEMIDE 40MG/4ML VIAL IVP SCH (09:00)
[2018-09-28] MEDS: CLOPIDOGREL 75MG TABLET PO SCH (09:00)
[2018-09-28] MEDS ORDERED: LEVOTHYROXINE SODIUM 112MCG TABLET PO SCH (09:30)
[2018-09-28] MEDS ORDERED: IOHEXOL-300 100 ML BOTTLE ONE (09:42)
[2018-09-28] MEDS ORDERED: FUROSEMIDE 40MG/4ML VIAL ONE (09:58)
[2018-09-28] MEDS ORDERED: ASPIRIN 325MG TABLET ONE (10:18)
[2018-09-28] MEDS ORDERED: CLOPIDOGREL 75MG TABLET ONE (10:18)
[2018-09-28] MEDS ORDERED: HEPARIN SODIUM 1,000 UNIT/1ML VIAL IV ONE (13:36)
[2018-09-28] MEDS: MONTELUKAST SODIUM 10MG TABLET PO SCH (18:08)
[2018-09-28] MEDS: ATORVASTATIN CALCIUM 40MG TABLET PO SCH (21:31)
[2018-09-29] VITALS (8 sets, daily range): BP systolic 103–132; BP diastolic 45–73
[2018-09-29] MEDS: ALBUTEROL (0.083%) 2.5MG/3ML NEB HHN SCH ×2 (00:34→08:38)
[2018-09-29] MEDS: PANTOPRAZOLE 40MG DR TABLET PO SCH (06:17)
[2018-09-29] MEDS: NITROGLYCERIN OINT 1GM/INCH UDPKT TD SCH (06:17)
[2018-09-29] MEDS ORDERED: LEVOTHYROXINE SODIUM 112MCG TABLET PO SCH (06:50)
[2018-09-29 06:53] LABS: EOSINOPHILS % 4.2 % (0.0-5.0); HEMATOCRIT. 32.4 % (42.0-52.0); HEMOGLOBIN. 10.8 g/dL (14.0-18.0); LYMPHOCYTES % 17.6 % (20.0-50.0); MEAN CORPUSCULAR HEMOGLOBIN 29.6 pg (28.0-32.0); MEAN CORPUSCULAR VOLUME 88.8 fL (80.0-94.0); MEAN PLATELET VOLUME 9.5 fl (7.4-10.4); MONOCYTES % 9.9 % (2.0-8.0); NEUTROPHILS % 67.3 % (40.0-76.0); PLATELET 186 x1000/uL (130-400); RED BLOOD CELL COUNT 3.64 mill/uL (4.7-6.1); RED CELL DISTRIBUTION WIDTH 16.4 % (11.6-14.6)
[2018-09-29] MEDS: BUDESONIDE 0.5MG/2ML NEB HHN SCH (08:38)
[2018-09-29] MEDS ORDERED: SODIUM CHLORIDE 0.45% 500 ML IV ONE (08:45)
[2018-09-29] MEDS ORDERED: SODIUM CHLORIDE 0.45% 1,000 ML IV SCH (08:45)
[2018-09-29] MEDS: CLOPIDOGREL 75MG TABLET PO SCH (08:59)
[2018-09-29] MEDS: ASPIRIN 81MG EC TABLET PO SCH (08:59)
[2018-09-29] MEDS: FUROSEMIDE 40MG/4ML VIAL IVP SCH ×2 (08:59→09:00)
[2018-09-29] MEDS: CARVEDILOL 3.125 MG TABLET PO SCH (09:00)
== END 2018-09-29 13:36 | disposition home health service (06) | DRG 246 ==
LOC: ER 09:14 → 7WST 09:37 → EDBEDREQTM 09:42 → EDBEDREQ 09:42 → ENRESERV 10:14 → 3WST 09-28 16:08
PROVIDERS: ADMIT Specialist; ATTEND Specialist
PROC: 027034Z Dilation of Coronary Artery, One Artery with Drug-eluting Intraluminal Device, Percutaneous Approach (ICD-10-PCS; principal; 2018-09-28)
PROC: B2181ZZ Fluoroscopy of Left Internal Mammary Bypass Graft using Low Osmolar Contrast (ICD-10-PCS; 2018-09-28)
PROC: 4A023N7 Measurement of Cardiac Sampling and Pressure, Left Heart, Percutaneous Approach (ICD-10-PCS; 2018-09-28)
PROC: B2111ZZ Fluoroscopy of Multiple Coronary Arteries using Low Osmolar Contrast (ICD-10-PCS; 2018-09-28)
DX: T82.858A Stenosis of other vascular prosthetic devices, implants and grafts, initial encounter (principal); I21.4 Non-ST elevation (NSTEMI) myocardial infarction; I50.23 Acute on chronic systolic (congestive) heart failure; N17.0 Acute kidney failure with tubular necrosis; C34.90 Malignant neoplasm of unspecified part of unspecified bronchus or lung; J96.10 Chronic respiratory failure, unspecified whether with hypoxia or hypercapnia; I25.110 Atherosclerotic heart disease of native coronary artery with unstable angina pectoris; D63.8 Anemia in other chronic diseases classified elsewhere; E03.9 Hypothyroidism, unspecified; E11.59 Type 2 diabetes mellitus with other circulatory complications; I44.7 Left bundle-branch block, unspecified; E78.5 Hyperlipidemia, unspecified; F41.1 Generalized anxiety disorder; H54.61 Unqualified visual loss, right eye, normal vision left eye; I11.0 Hypertensive heart disease with heart failure; I25.5 Ischemic cardiomyopathy; I25.82 Chronic total occlusion of coronary artery; I27.29 Other secondary pulmonary hypertension; I34.0 Nonrheumatic mitral (valve) insufficiency; I48.2 Chronic atrial fibrillation; Y83.8 Other surgical procedures as the cause of abnormal reaction of the patient, or of later complication, without mention of misadventure at the time of the procedure; J44.9 Chronic obstructive pulmonary disease, unspecified; F32.9 Major depressive disorder, single episode, unspecified; M19.90 Unspecified osteoarthritis, unspecified site; I95.9 Hypotension, unspecified; Z79.890 Hormone replacement therapy; Z79.899 Other long term (current) drug therapy; Z85.118 Personal history of other malignant neoplasm of bronchus and lung; Z87.891 Personal history of nicotine dependence; I25.2 Old myocardial infarction; Z79.02 Long term (current) use of antithrombotics/antiplatelets; Z79.82 Long term (current) use of aspirin; Z95.1 Presence of aortocoronary bypass graft; Z95.5 Presence of coronary angioplasty implant and graft; Z95.810 Presence of automatic (implantable) cardiac defibrillator; Z99.81 Dependence on supplemental oxygen; Y92.89 Other specified places as the place of occurrence of the external cause
CPT/HCPCS: 36415; 36600; 71045; 71275; 80048; 82375; 82805; 83880; 84439; 84443; 84484; 85347; 85379; 92928; 93005; 93459; 93970; 94640; 96374; 97162; 99285; C1725; C1726; C1769; C1874; C1887; C1893; J1644; J1650; J1940; J2250; J3010; J3490; J7611; J7626; Q9967; A4315

== ENCOUNTER 2018-10-03 14:23 | Inpatient (IN) | payer MEDICARE, MEDICAID ==
[~2018-10-03] VITALS: Ht 165.1 cm; Wt 63.2 kg
[2018-10-03 16:30] LABS: CHLORIDE 106 mEq/L (98-107)
[2018-10-03 16:31] LABS: BASOPHILS % 1.2 % (0.0-2.0); EOSINOPHILS % 9.2 % (0.0-5.0); HEMATOCRIT. 36.9 % (42.0-52.0); LYMPHOCYTES % 22.7 % (20.0-50.0); MEAN CORPUSCULAR HEMOGLOBIN 29.3 pg (28.0-32.0); MEAN CORPUSCULAR VOLUME 90.2 fL (80.0-94.0); MEAN PLATELET VOLUME 9.3 fl (7.4-10.4); MONOCYTES % 11.8 % (2.0-8.0); NEUTROPHILS % 55.1 % (40.0-76.0); PLATELET 246 x1000/uL (130-400); RED BLOOD CELL COUNT 4.09 mill/uL (4.7-6.1); RED CELL DISTRIBUTION WIDTH 16.1 % (11.6-14.6)
[2018-10-03 16:33] LABS: PARTIAL THROMBOPLASTIN TIME 28.2 sec (23.4-31.0); PROTHROMBIN TIME 10.4 sec (9.1-11.1)
[2018-10-03] MEDS ORDERED: CLOPIDOGREL 75MG TABLET PO ONE (17:00)
[2018-10-03] MEDS ORDERED: FUROSEMIDE 20MG/2ML VIAL IVP ONE (17:15)
[2018-10-03] MEDS ORDERED: ACETAMINOPHEN 325MG TABLET PO PRN (20:15)
[2018-10-03 23:49] VITALS: BP 128/50
[2018-10-04] VITALS (36 sets, daily range): BP systolic 83–167; BP diastolic 25–138
[2018-10-04] MEDS: LEVOTHYROXINE SODIUM 112MCG TABLET PO SCH (07:02)
[2018-10-04] MEDS: CARVEDILOL 12.5MG TABLET PO SCH ×3 (09:00→22:14)
[2018-10-04] MEDS: ASPIRIN 81MG EC TABLET PO SCH (09:22)
[2018-10-04] MEDS: CLOPIDOGREL 75MG TABLET PO SCH (09:23)
[2018-10-04] MEDS ORDERED: AMIODARONE HCL 150 MG in DEXT 5% WATER 100 ML IV NR ×2 (09:45→14:00)
[2018-10-04 10:27] LABS: BASOPHILS % 1.3 % (0.0-2.0); EOSINOPHILS % 7.8 % (0.0-5.0); HEMATOCRIT. 34.8 % (42.0-52.0); HEMOGLOBIN. 11.5 g/dL (14.0-18.0); LYMPHOCYTES % 20.6 % (20.0-50.0); MEAN CORPUSCULAR HEMOGLOBIN 29.3 pg (28.0-32.0); MONOCYTES % 11.6 % (2.0-8.0); NEUTROPHILS % 58.7 % (40.0-76.0); PLATELET 226 x1000/uL (130-400); RED BLOOD CELL COUNT 3.91 mill/uL (4.7-6.1)
[2018-10-04] MEDS: AMIODARONE HCL 900 MG in DEXT 5% WATER 482 ML IV SCH (10:27)
[2018-10-04 10:36] LABS: CHLORIDE 103 mEq/L (98-107)
[2018-10-04] MEDS ORDERED: FUROSEMIDE 40MG/4ML VIAL IVP NR (10:45)
[2018-10-04] MEDS ORDERED: AMIODARONE HCL 150 MG in DEXT 5% WATER 100 ML IV ONE (14:00)
[2018-10-04] MEDS ORDERED: LIDOCAINE 2G PREMIX 500 ML IV SCH (14:15)
[2018-10-04] MEDS ORDERED: LIDOCAINE HCL 2% 5ML SYRINGE IV NR (14:15)
[2018-10-04] MEDS ORDERED: MORPHINE SULFATE 4 MG/ML CPJ (NOT FOR IM USE) IV PRN (15:00)
[2018-10-04] MEDS ORDERED: MIDAZOLAM HCL 2 MG/2 ML VIAL IV ONE (15:00)
[2018-10-04] MEDS: ESMOLOL 2500MG PREMIX 250 ML IV SCH (20:55)
[2018-10-04] MEDS: IPRATROPIUM/ALBUTEROL 0.5-3(2.5)MG/3ML NEB HHN SCH (21:29)
[2018-10-05] VITALS (96 sets, daily range): BP systolic 71–134; BP diastolic 31–89
[2018-10-05] MEDS: ESMOLOL 2500MG PREMIX 250 ML IV SCH ×3 (02:07→21:30)
[2018-10-05] MEDS ORDERED: ONDANSETRON HCL 4MG/2ML INJ IV PRN ×2 (02:15→12:45)
[2018-10-05 07:25] LABS: BASOPHILS % 0.9 % (0.0-2.0); EOSINOPHILS % 0.3 % (0.0-5.0); HEMATOCRIT. 32.1 % (42.0-52.0); HEMOGLOBIN. 10.7 g/dL (14.0-18.0); MEAN CORPUSCULAR HEMOGLOBIN 29.4 pg (28.0-32.0); MEAN CORPUSCULAR VOLUME 88.7 fL (80.0-94.0); MEAN PLATELET VOLUME 9.6 fl (7.4-10.4); MONOCYTES % 12.6 % (2.0-8.0); NEUTROPHILS % 72.2 % (40.0-76.0); PLATELET 211 x1000/uL (130-400); RED BLOOD CELL COUNT 3.62 mill/uL (4.7-6.1); RED CELL DISTRIBUTION WIDTH 16.1 % (11.6-14.6)
[2018-10-05] MEDS: LEVOTHYROXINE SODIUM 112MCG TABLET PO SCH (07:50)
[2018-10-05] MEDS: IPRATROPIUM/ALBUTEROL 0.5-3(2.5)MG/3ML NEB HHN SCH ×4 (08:20→20:21)
[2018-10-05] MEDS: CLOPIDOGREL 75MG TABLET PO SCH (09:00)
[2018-10-05] MEDS: CARVEDILOL 12.5MG TABLET PO SCH ×2 (09:00→21:26)
[2018-10-05] MEDS: FUROSEMIDE 40MG/4ML VIAL IVP SCH (09:00)
[2018-10-05] MEDS: ASPIRIN 81MG EC TABLET PO SCH (09:00)
[2018-10-05] MEDS ORDERED: LIDOCAINE HCL 1% 20ML VIAL (Pyxis) INJ ONE (09:22)
[2018-10-05] MEDS ORDERED: IODIXANOL 320MG/ML 100 ML BOTTLE IV ONE (09:23)
[2018-10-05] MEDS ORDERED: FENTANYL CITRATE/PF 50MCG/ML 2ML VIAL ONE (10:03)
[2018-10-05] MEDS ORDERED: MIDAZOLAM HCL 2 MG/2 ML VIAL ONE (10:03)
[2018-10-05] MEDS ORDERED: ACETAMINOPHEN 325MG TABLET PO PRN (12:45)
[2018-10-05] MEDS ORDERED: ATROPINE SULFATE 1MG/10ML SYR IV PRN (12:45)
[2018-10-05] MEDS ORDERED: HEPARIN SODIUM 1,000 UNIT/1ML VIAL IV ONE (14:13)
[2018-10-05] MEDS ORDERED: PHENYLEPHRINE 100MCG/ML 10ML VIAL (CATH LAB) IV ONE (14:14)
[2018-10-06] VITALS (67 sets, daily range): BP systolic 78–139; BP diastolic 25–76
[2018-10-06] MEDS: ESMOLOL 2500MG PREMIX 250 ML IV SCH (03:32)
[2018-10-06] MEDS: AMIODARONE HCL 900 MG in DEXT 5% WATER 482 ML IV SCH ×2 (03:33→15:41)
[2018-10-06 07:02] LABS: BASOPHILS % 0.4 % (0.0-2.0); EOSINOPHILS % 2.9 % (0.0-5.0); HEMATOCRIT. 29.8 % (42.0-52.0); LYMPHOCYTES % 17.1 % (20.0-50.0); MEAN CORPUSCULAR HEMOGLOBIN 29.9 pg (28.0-32.0); MEAN CORPUSCULAR VOLUME 89.1 fL (80.0-94.0); MEAN PLATELET VOLUME 9.7 fl (7.4-10.4); NEUTROPHILS % 66.6 % (40.0-76.0); PLATELET 196 x1000/uL (130-400); RED BLOOD CELL COUNT 3.35 mill/uL (4.7-6.1); RED CELL DISTRIBUTION WIDTH 15.9 % (11.6-14.6)
[2018-10-06] MEDS: IPRATROPIUM/ALBUTEROL 0.5-3(2.5)MG/3ML NEB HHN SCH ×4 (08:24→19:58)
[2018-10-06] MEDS ORDERED: SODIUM CHLORIDE 0.45% 500 ML IV ONE (08:45)
[2018-10-06] MEDS ORDERED: CLOPIDOGREL 75MG TABLET PO SCH (09:00)
[2018-10-06] MEDS: FUROSEMIDE 40MG/4ML VIAL IVP SCH (09:02)
[2018-10-06] MEDS: LEVOTHYROXINE SODIUM 112MCG TABLET PO SCH (09:02)
[2018-10-06] MEDS: ASPIRIN 325MG TABLET PO SCH (09:02)
[2018-10-06] MEDS: CLOPIDOGREL 75MG TABLET PO SCH (09:05)
[2018-10-06] MEDS: CARVEDILOL 12.5MG TABLET PO SCH ×2 (09:08→20:51)
[2018-10-07] VITALS (20 sets, daily range): BP systolic 97–117; BP diastolic 41–79
[2018-10-07 05:53] LABS: HEMATOCRIT. 32.5 % (42.0-52.0); HEMOGLOBIN. 10.8 g/dL (14.0-18.0); MEAN CORPUSCULAR HEMOGLOBIN 29.9 pg (28.0-32.0); MEAN CORPUSCULAR VOLUME 89.6 fL (80.0-94.0); MEAN PLATELET VOLUME 9.6 fl (7.4-10.4); PLATELET 203 x1000/uL (130-400); RED BLOOD CELL COUNT 3.63 mill/uL (4.7-6.1)
[2018-10-07 06:51] LABS: PLATELET ESTIMATE NORMAL
[2018-10-07] MEDS: LEVOTHYROXINE SODIUM 112MCG TABLET PO SCH (08:25)
[2018-10-07] MEDS: FUROSEMIDE 40MG/4ML VIAL IVP SCH (08:25)
[2018-10-07] MEDS: CARVEDILOL 12.5MG TABLET PO SCH ×2 (08:26→20:39)
[2018-10-07] MEDS: ASPIRIN 325MG TABLET PO SCH (08:26)
[2018-10-07] MEDS: CLOPIDOGREL 75MG TABLET PO SCH (08:32)
[2018-10-07] MEDS: IPRATROPIUM/ALBUTEROL 0.5-3(2.5)MG/3ML NEB HHN SCH ×4 (09:25→21:24)
[2018-10-07] MEDS: AMIODARONE HCL 200 MG TABLET PO SCH ×2 (09:54→20:39)
[2018-10-08] VITALS (12 sets, daily range): BP systolic 90–131; BP diastolic 46–65
[2018-10-08] MEDS: LEVOTHYROXINE SODIUM 112MCG TABLET PO SCH (06:17)
[2018-10-08 07:01] LABS: BASOPHILS % 0.7 % (0.0-2.0); EOSINOPHILS % 4.3 % (0.0-5.0); HEMATOCRIT. 33.2 % (42.0-52.0); MEAN CORPUSCULAR HEMOGLOBIN 29.6 pg (28.0-32.0); MEAN CORPUSCULAR VOLUME 89.4 fL (80.0-94.0); MONOCYTES % 12.1 % (2.0-8.0); NEUTROPHILS % 69.9 % (40.0-76.0); RED BLOOD CELL COUNT 3.71 mill/uL (4.7-6.1); RED CELL DISTRIBUTION WIDTH 16.5 % (11.6-14.6)
[2018-10-08] MEDS: FUROSEMIDE 40MG/4ML VIAL IVP SCH (08:59)
[2018-10-08] MEDS: CARVEDILOL 12.5MG TABLET PO SCH ×2 (08:59→21:00)
[2018-10-08] MEDS: CLOPIDOGREL 75MG TABLET PO SCH (08:59)
[2018-10-08] MEDS: AMIODARONE HCL 200 MG TABLET PO SCH ×2 (08:59→21:49)
[2018-10-08] MEDS: ASPIRIN 325MG TABLET PO SCH (08:59)
[2018-10-08] MEDS: IPRATROPIUM/ALBUTEROL 0.5-3(2.5)MG/3ML NEB HHN SCH ×4 (09:33→21:04)
[2018-10-08 13:50] LABS: PLATELET 225 x1000/uL (130-400)
[2018-10-09] VITALS (8 sets, daily range): BP systolic 98–131; BP diastolic 40–95
[2018-10-09 05:54] LABS: BASOPHILS % 0.8 % (0.0-2.0); EOSINOPHILS % 4.5 % (0.0-5.0); HEMATOCRIT. 34.7 % (42.0-52.0); HEMOGLOBIN. 11.5 g/dL (14.0-18.0); LYMPHOCYTES % 13.8 % (20.0-50.0); MEAN CORPUSCULAR HEMOGLOBIN 29.4 pg (28.0-32.0); MEAN CORPUSCULAR VOLUME 89.2 fL (80.0-94.0); MEAN PLATELET VOLUME 9.7 fl (7.4-10.4); MONOCYTES % 13.4 % (2.0-8.0); NEUTROPHILS % 67.5 % (40.0-76.0); PLATELET 261 x1000/uL (130-400); RED CELL DISTRIBUTION WIDTH 16.4 % (11.6-14.6)
[2018-10-09] MEDS: LEVOTHYROXINE SODIUM 112MCG TABLET PO SCH (06:50)
[2018-10-09] MEDS: AMIODARONE HCL 200 MG TABLET PO SCH (08:59)
[2018-10-09] MEDS: ASPIRIN 325MG TABLET PO SCH (08:59)
[2018-10-09] MEDS: FUROSEMIDE 40MG/4ML VIAL IVP SCH (08:59)
[2018-10-09] MEDS: CLOPIDOGREL 75MG TABLET PO SCH (08:59)
[2018-10-09] MEDS: CARVEDILOL 12.5MG TABLET PO SCH (08:59)
[2018-10-09] MEDS: IPRATROPIUM/ALBUTEROL 0.5-3(2.5)MG/3ML NEB HHN SCH (09:20)
== END 2018-10-09 11:50 | disposition home health service (06) | DRG 286 ==
LOC: ER 14:23 → 5WST 16:50 → EDBEDREQ 16:53 → EDBEDREQTM 16:53 → ENRESERV 22:17 → 5WST 10-04 09:00 → 3WST 10-04 10:10 → CVICU 10-04 15:28 → 3WST 10-07 16:33
PROVIDERS: ADMIT Internal Medicine Geriatric Medicine; ATTEND Internal Medicine Geriatric Medicine
PROC: 4B02XTZ Measurement of Cardiac Defibrillator, External Approach (ICD-10-PCS; 2018-10-03)
PROC: B2111ZZ Fluoroscopy of Multiple Coronary Arteries using Low Osmolar Contrast (ICD-10-PCS; principal; 2018-10-05)
DX: I13.0 Hypertensive heart and chronic kidney disease with heart failure and stage 1 through stage 4 chronic kidney disease, or unspecified chronic kidney disease (principal); J96.20 Acute and chronic respiratory failure, unspecified whether with hypoxia or hypercapnia; I50.23 Acute on chronic systolic (congestive) heart failure; N17.0 Acute kidney failure with tubular necrosis; I47.2 Ventricular tachycardia; E87.1 Hypo-osmolality and hyponatremia; N18.4 Chronic kidney disease, stage 4 (severe); I25.10 Atherosclerotic heart disease of native coronary artery without angina pectoris; E87.5 Hyperkalemia; I25.5 Ischemic cardiomyopathy; E11.22 Type 2 diabetes mellitus with diabetic chronic kidney disease; I44.7 Left bundle-branch block, unspecified; J44.9 Chronic obstructive pulmonary disease, unspecified; E11.51 Type 2 diabetes mellitus with diabetic peripheral angiopathy without gangrene; E03.9 Hypothyroidism, unspecified; E11.36 Type 2 diabetes mellitus with diabetic cataract; F32.9 Major depressive disorder, single episode, unspecified; M19.90 Unspecified osteoarthritis, unspecified site; E78.5 Hyperlipidemia, unspecified; F02.80 Dementia in other diseases classified elsewhere, unspecified severity, without behavioral disturbance, psychotic disturbance, mood disturbance, and anxiety; D64.9 Anemia, unspecified; G30.9 Alzheimer's disease, unspecified; F41.1 Generalized anxiety disorder; H54.61 Unqualified visual loss, right eye, normal vision left eye; I27.20 Pulmonary hypertension, unspecified; I34.0 Nonrheumatic mitral (valve) insufficiency; G90.8 Other disorders of autonomic nervous system; Z79.02 Long term (current) use of antithrombotics/antiplatelets; Z79.899 Other long term (current) drug therapy; Z85.118 Personal history of other malignant neoplasm of bronchus and lung; Z87.891 Personal history of nicotine dependence; Z91.19 Patient's noncompliance with other medical treatment and regimen; Z95.1 Presence of aortocoronary bypass graft; I25.2 Old myocardial infarction; Z95.5 Presence of coronary angioplasty implant and graft; Z95.810 Presence of automatic (implantable) cardiac defibrillator
CPT/HCPCS: 36415; 71045; 80048; 82962; 83735; 83880; 84443; 84484; 85347; 92610; 93005; 93454; 93571; 93880; 94640; 96365; 96375; 99285; C1726; C1769; C1887; C1893; J0282; J1644; J1940; J2001; J2250; J2370; J2405; J3010; J3490; J7040; J7050; J7060; J7620; Q9967; A4315

== ENCOUNTER 2018-10-24 07:11 | Inpatient (IN) | payer MEDICARE, MEDICAID ==
[~2018-10-24] VITALS: Ht 154.9 cm; Wt 65.4 kg
[2018-10-24] MEDS ORDERED: SIMV40TA5 MT (08:44)
[2018-10-24] MEDS ORDERED: FURO40TA5 MT (08:44)
[2018-10-24] MEDS ORDERED: ASPI-986 MT (08:44)
[2018-10-24] MEDS ORDERED: METO-539 PO (08:44)
[2018-10-24 08:58] LABS: HEMATOCRIT 36.3 % (42.0-52.0); HEMOGLOBIN 11.8 g/dL (14.0-18.0); MEAN CORPUSCULAR HEMOGLOBIN 28.9 pg (28.0-32.0); MEAN CORPUSCULAR VOLUME 88.7 fL (80.0-94.0); PLATELET 175 x1000/uL (130-400); RED BLOOD CELL COUNT 4.09 mill/uL (4.7-6.1); RED CELL DISTRIBUTION WIDTH 16.2 % (11.6-14.6)
[2018-10-24 09:08] LABS: PARTIAL THROMBOPLASTIN TIME 27.1 sec (23.4-31.0); PROTHROMBIN TIME 10.2 sec (9.1-11.1)
[2018-10-24] MEDS ORDERED: IODIXANOL 320MG/ML 100 ML BOTTLE IV ONE (13:17)
[2018-10-24] MEDS ORDERED: GENTAMICIN SULF 40MG/ML 2ML VIAL ONE (13:17)
[2018-10-24] MEDS ORDERED: LIDOCAINE HCL 1% 20ML VIAL (Pyxis) INJ ONE (13:18)
[2018-10-24] MEDS ORDERED: GENTAMICIN/NS IRRIGATION 500 ML IR ONE (13:18)
[2018-10-24] MEDS ORDERED: CEFAZOLIN SODIUM 1000MG/VIAL ONE (13:34)
[2018-10-24] MEDS ORDERED: SODIUM CHLORIDE 0.9% 10ML VIAL ONE ×2 (13:34→13:40)
[2018-10-24] MEDS ORDERED: DEXAMETHASONE 4MG/ML 1ML VIAL ONE (13:39)
[2018-10-24] MEDS ORDERED: PHENYLEPHRINE HCL 10 MG/ML 1ML (IV VIAL) IV ONE (13:40)
[2018-10-24] MEDS ORDERED: EPHEDRINE SULFATE 50MG/ML VIAL ONE (13:40)
[2018-10-24] MEDS ORDERED: ONDANSETRON HCL 4MG/2ML INJ ONE (16:49)
[2018-10-24] MEDS ORDERED: FUROSEMIDE 20MG/2ML VIAL ONE (16:52)
[2018-10-24] MEDS ORDERED: HYDROCODONE/ACETAMINOPHEN 5/325MG TABLET PO PRN (17:15)
[2018-10-24] MEDS ORDERED: HYDROMORPHONE HCL/PF 2MG/ML CPJ IV PRN (17:45)
[2018-10-24 20:00] VITALS: BP 142/74
[2018-10-24 20:53] VITALS: BP 138/73
[2018-10-24 22:02] VITALS: BP 135/66
[2018-10-24] MEDS: CEFAZOLIN 1000MG PREMIX 50 ML IV SCH (23:59)
[2018-10-25] VITALS (9 sets, daily range): BP systolic 122–134; BP diastolic 41–84
[2018-10-25 07:07] LABS: BASOPHILS % 0.1 % (0.0-2.0); HEMOGLOBIN. 12.1 g/dL (14.0-18.0); LYMPHOCYTES % 10.4 % (20.0-50.0); MEAN CORPUSCULAR HEMOGLOBIN 29.2 pg (28.0-32.0); MEAN CORPUSCULAR VOLUME 89.2 fL (80.0-94.0); MEAN PLATELET VOLUME 9.9 fl (7.4-10.4); MONOCYTES % 3.7 % (2.0-8.0); NEUTROPHILS % 85.8 % (40.0-76.0); PLATELET 179 x1000/uL (130-400); RED BLOOD CELL COUNT 4.15 mill/uL (4.7-6.1); RED CELL DISTRIBUTION WIDTH 16.1 % (11.6-14.6)
[2018-10-25] MEDS: CEFAZOLIN 1000MG PREMIX 50 ML IV SCH (07:13)
== END 2018-10-25 15:47 | disposition home or self-care (01) | DRG 224 ==
LOC: CCL 07:11 → 3WST 07:12
PROVIDERS: ADMIT Internal Medicine Clinical Cardiac Electrophysiology; ATTEND Internal Medicine Clinical Cardiac Electrophysiology
PROC: 02HL3KZ Insertion of Defibrillator Lead into Left Ventricle, Percutaneous Approach (ICD-10-PCS; principal; 2018-10-24)
PROC: 0JH609Z Insertion of Cardiac Resynchronization Defibrillator Pulse Generator into Chest Subcutaneous Tissue and Fascia, Open Approach (ICD-10-PCS; 2018-10-24)
PROC: 4A023N6 Measurement of Cardiac Sampling and Pressure, Right Heart, Percutaneous Approach (ICD-10-PCS; 2018-10-24)
PROC: 0JPT0PZ Removal of Cardiac Rhythm Related Device from Trunk Subcutaneous Tissue and Fascia, Open Approach (ICD-10-PCS; 2018-10-24)
PROC: B51NYZA Fluoroscopy of Left Upper Extremity Veins using Other Contrast, Guidance (ICD-10-PCS; 2018-10-24)
PROC: 02HL3KZ Insertion of Defibrillator Lead into Left Ventricle, Percutaneous Approach (ICD-10-PCS; 2018-10-24)
DX: I47.2 Ventricular tachycardia (principal); I50.23 Acute on chronic systolic (congestive) heart failure; J96.10 Chronic respiratory failure, unspecified whether with hypoxia or hypercapnia; I13.0 Hypertensive heart and chronic kidney disease with heart failure and stage 1 through stage 4 chronic kidney disease, or unspecified chronic kidney disease; C34.90 Malignant neoplasm of unspecified part of unspecified bronchus or lung; I25.5 Ischemic cardiomyopathy; J44.9 Chronic obstructive pulmonary disease, unspecified; N18.3 Chronic kidney disease, stage 3 (moderate); E11.22 Type 2 diabetes mellitus with diabetic chronic kidney disease; I44.7 Left bundle-branch block, unspecified; G30.9 Alzheimer's disease, unspecified; D64.9 Anemia, unspecified; F02.80 Dementia in other diseases classified elsewhere, unspecified severity, without behavioral disturbance, psychotic disturbance, mood disturbance, and anxiety; Z95.1 Presence of aortocoronary bypass graft; Z95.810 Presence of automatic (implantable) cardiac defibrillator
CPT/HCPCS: 33225; 33264; 36415; 71045; 75820; 80048; 85027; 93005; 93451; 93640; 97166; A4565; C1769; C1882; C1887; C1892; C1893; C1900; J0690; J1100; J1580; J1644; J1940; J2370; J2405; J3490; J7050; L3670; Q9967

== ENCOUNTER 2019-03-04 07:42 | Inpatient (IN) | payer MEDICARE, MEDICAID ==
[~2019-03-04] VITALS: Ht 157.5 cm; Wt 66.2 kg
[~2019-03-04 07:42] MED LIST changes: +ASPI-986 MT; -CLOP75TA16 PO; +CLOP75TA4 PO; +FURO40TA5 MT; +METO-539 PO; +SIMV40TA5 MT
[2019-03-04] MEDS ORDERED: CLOP75TA4 PO (08:04)
[2019-03-04] MEDS ORDERED: AMIO100T4 PO (08:04)
[2019-03-04] MEDS ORDERED: BENZ100C86 PO (08:04)
[2019-03-04 08:52] LABS: EOSINOPHILS % 12.1 % (0.0-5.0); HEMATOCRIT. 32.4 % (42.0-52.0); HEMOGLOBIN. 11.1 g/dL (14.0-18.0); LYMPHOCYTES % 13.6 % (20.0-50.0); MEAN CORPUSCULAR HEMOGLOBIN 31.2 pg (28.0-32.0); MEAN CORPUSCULAR VOLUME 91.4 fL (80.0-94.0); MEAN PLATELET VOLUME 8.8 fl (7.4-10.4); MONOCYTES % 10.6 % (2.0-8.0); NEUTROPHILS % 62.7 % (40.0-76.0); PLATELET 237 x1000/uL (130-400); RED BLOOD CELL COUNT 3.55 mill/uL (4.7-6.1); RED CELL DISTRIBUTION WIDTH 15.5 % (11.6-14.6)
[2019-03-04 09:00] LABS: CHLORIDE 103 mEq/L (98-107)
[2019-03-04 09:18] LABS: CLARITY URINE CLEAR (CLEAR); COLOR URINE YELLOW (YELLOW); KETONES URINE NEGATIVE (NEGATIVE); LEUKOCYTE ESTERASE URINE NEGATIVE (NEGATIVE); NITRITE URINE NEGATIVE (NEGATIVE); OCCULT BLOOD URINE NEGATIVE (NEGATIVE); PH URINE 5.5 (4.5-8.0); PROTEIN URINE NEGATIVE (NEGATIVE); SPECIFIC GRAVITY URINE 1.017 (1.005-1.030)
[2019-03-04] MEDS ORDERED: MORPHINE SULFATE 4 MG/ML CPJ (NOT FOR IM USE) IV NR (09:51)
[2019-03-04] MEDS ORDERED: ONDANSETRON HCL 4MG/2ML INJ IV NR (09:51)
[2019-03-04] MEDS ORDERED: HYDROCODONE/ACETAMINOPHEN 5/325MG TABLET PO ONE (14:15)
[2019-03-04 20:00] VITALS: BP 115/55
[2019-03-04] MEDS ORDERED: ACETAMINOPHEN 325MG TABLET PO PRN (21:15)
[2019-03-05] VITALS: BP 127/59
[2019-03-05 04:00] VITALS: BP 128/52
[2019-03-05 06:39] LABS: CHLORIDE 105 mEq/L (98-107)
[2019-03-05 06:43] LABS: BASOPHILS % 0.8 % (0.0-2.0); EOSINOPHILS % 12.5 % (0.0-5.0); HEMOGLOBIN. 10.6 g/dL (14.0-18.0); LYMPHOCYTES % 14.2 % (20.0-50.0); MEAN CORPUSCULAR HEMOGLOBIN 31.1 pg (28.0-32.0); MEAN CORPUSCULAR VOLUME 91.1 fL (80.0-94.0); MEAN PLATELET VOLUME 8.7 fl (7.4-10.4); MONOCYTES % 11.1 % (2.0-8.0); NEUTROPHILS % 61.4 % (40.0-76.0); PLATELET 234 x1000/uL (130-400); RED CELL DISTRIBUTION WIDTH 15.3 % (11.6-14.6)
[2019-03-05 08:03] VITALS: BP 124/52
[2019-03-05] MEDS: COLCHICINE 0.6MG TABLET PO SCH ×2 (08:55→16:05)
[2019-03-05] MEDS ORDERED: HYDROCODONE/ACETAMINOPHEN 5/325MG TABLET PO PRN (11:00)
[2019-03-05 11:50] VITALS: BP 104/41
[2019-03-05] MEDS: ALLOPURINOL 100 MG TABLET PO SCH (13:07)
[2019-03-05 15:59] VITALS: BP 110/39
[2019-03-05] MEDS ORDERED: MORPHINE SULFATE 2 MG/ML CPJ (NOT FOR IM USE) IV PRN (17:15)
[2019-03-05] MEDS ORDERED: MEDICATION NOT ON FORMULARY EA (Aspirin 1 TAB) MT SCH (17:15)
[2019-03-05] MEDS: FUROSEMIDE 40MG TABLET PO SCH (17:30)
[2019-03-05] MEDS ORDERED: MEDICATION NOT ON FORMULARY EA (Clopidogrel Bisulfate (Plavix) 75 MG) PO SCH (17:30)
[2019-03-05] MEDS ORDERED: MEDICATION NOT ON FORMULARY EA (Furosemide 1 TAB) MT SCH (17:30)
[2019-03-05] MEDS ORDERED: MEDICATION NOT ON FORMULARY EA (Metoprolol Tartrate 50 MG) PO SCH (17:30)
[2019-03-05] MEDS: CARVEDILOL 12.5MG TABLET PO SCH ×2 (17:30→21:22)
[2019-03-05] MEDS ORDERED: METOPROLOL TARTRATE 50MG TABLET PO SCH (17:45)
[2019-03-05] MEDS: DEXAMETHASONE 4MG/ML 1ML VIAL IV SCH (18:04)
[2019-03-05] MEDS: ASPIRIN 325MG TABLET PO SCH (18:04)
[2019-03-05] MEDS: LEVOTHYROXINE SODIUM 112MCG TABLET PO SCH (18:04)
[2019-03-05] MEDS: AMIODARONE HCL 200 MG TABLET PO SCH (18:04)
[2019-03-05] MEDS: CLOPIDOGREL 75MG TABLET PO SCH (18:04)
[2019-03-05 20:00] VITALS: BP 109/52
[2019-03-05] MEDS ORDERED: ENOXAPARIN 30MG/0.3ML SYR SUBCUT SCH (21:00)
[2019-03-05] MEDS ORDERED: MEDICATION NOT ON FORMULARY EA (Simvastatin 1 TAB) MT SCH (21:00)
[2019-03-05] MEDS ORDERED: ATORVASTATIN CALCIUM 20MG TABLET PO SCH (21:00)
[2019-03-06] VITALS: BP 117/43
[2019-03-06] MEDS: DEXAMETHASONE 4MG/ML 1ML VIAL IV SCH ×3 (01:57→11:42)
[2019-03-06 04:00] VITALS: BP 102/43
[2019-03-06] MEDS: LEVOTHYROXINE SODIUM 112MCG TABLET PO SCH (06:04)
[2019-03-06 08:00] VITALS: BP 107/29
[2019-03-06] MEDS: FUROSEMIDE 40MG TABLET PO SCH (08:55)
[2019-03-06] MEDS: CARVEDILOL 12.5MG TABLET PO SCH (08:55)
[2019-03-06] MEDS: CLOPIDOGREL 75MG TABLET PO SCH (09:01)
[2019-03-06] MEDS: ASPIRIN 325MG TABLET PO SCH (09:01)
[2019-03-06] MEDS: COLCHICINE 0.6MG TABLET PO SCH (09:01)
[2019-03-06] MEDS: AMIODARONE HCL 200 MG TABLET PO SCH (09:01)
[2019-03-06] MEDS: ALLOPURINOL 100 MG TABLET PO SCH (09:01)
[2019-03-06 11:18] LABS: CHLORIDE 102 mEq/L (98-107)
[2019-03-06 11:21] LABS: HEMATOCRIT. 30.6 % (42.0-52.0); HEMOGLOBIN. 10.3 g/dL (14.0-18.0); MEAN CORPUSCULAR HEMOGLOBIN 31.2 pg (28.0-32.0); MEAN CORPUSCULAR VOLUME 92.3 fL (80.0-94.0); MEAN PLATELET VOLUME 8.9 fl (7.4-10.4); PLATELET 248 x1000/uL (130-400); RED BLOOD CELL COUNT 3.31 mill/uL (4.7-6.1); RED CELL DISTRIBUTION WIDTH 15.3 % (11.6-14.6)
[2019-03-06 12:00] VITALS: BP 105/38
[2019-03-06] MEDS ORDERED: ALLO100T PO ×2 (12:06→12:16)
[2019-03-06 13:37] LABS: PLATELET ESTIMATE NORMAL
[2019-03-06 15:02] VITALS: BP 105/38
[2019-03-06] MEDS ORDERED: ALLOPURINOL 100 MG TABLET PO SCH (17:00)
== END 2019-03-06 15:46 | disposition home health service (06) | DRG 554 ==
LOC: ER 08:55 → 6EST 13:54 → EDBEDREQSVC 14:04 → EDBEDREQ 14:04 → ENRESERV 16:45
PROVIDERS: ADMIT Family Medicine; ATTEND Family Medicine
DX: M10.9 Gout, unspecified (principal); I25.10 Atherosclerotic heart disease of native coronary artery without angina pectoris; E03.9 Hypothyroidism, unspecified; I48.91 Unspecified atrial fibrillation; I13.10 Hypertensive heart and chronic kidney disease without heart failure, with stage 1 through stage 4 chronic kidney disease, or unspecified chronic kidney disease; N18.9 Chronic kidney disease, unspecified; E78.5 Hyperlipidemia, unspecified; D63.8 Anemia in other chronic diseases classified elsewhere; I73.9 Peripheral vascular disease, unspecified; H81.10 Benign paroxysmal vertigo, unspecified ear; Z85.118 Personal history of other malignant neoplasm of bronchus and lung; Z95.0 Presence of cardiac pacemaker; Z95.1 Presence of aortocoronary bypass graft; Z99.81 Dependence on supplemental oxygen; Z79.899 Other long term (current) drug therapy; Z79.82 Long term (current) use of aspirin; I25.2 Old myocardial infarction
CPT/HCPCS: 36415; 73630; 83605; 84145; 84550; 85651; 86140; 96374; 96375; 97162; 99285; C1893; J1100; J1650; J2270; J2405